=== PATIENT | male | born 1995 | race Caucasian/White ===

== ENCOUNTER 2023-02-26 01:04 | Emergency (ER) | payer MEDICAID, SELFPAY ==
--- NOTE | 2023-02-26 | ECG_ITS ---
Test Reason : tachycrdia Blood Pressure : / mmHG Vent. Rate : 145 BPM Atrial Rate : 145 BPM P-R Int : 122 ms QRS Dur : 072 ms QT Int : 284 ms P-R-T Axes : 072 064 058 degrees QTc Int : 441 ms Sinus tachycardia Otherwise normal ECG No previous ECGs available Referred By: Generic ED Physician Electronically Signed By:NABOR HODGES MD
[2023-02-26 01:12] VITALS: BP 147/97; PULSE 149; RESP 16; O2SAT 99; BMI 20.2
--- NOTE | 2023-02-26 01:31 | ECG_ITS ---
Test Reason : TACHY Blood Pressure : / mmHG Vent. Rate : 176 BPM Atrial Rate : 176 BPM P-R Int : 120 ms QRS Dur : 072 ms QT Int : 270 ms P-R-T Axes : 085 082 064 degrees QTc Int : 462 ms Sinus tachycardia Nonspecific ST abnormality Abnormal ECG When compared with ECG of 26-FEB-2023 01:18, No significant change was found Referred By: Harry Martell Electronically Signed By:NABOR HODGES MD
[2023-02-26 01:33] LABS: Basophils Absolute Auto 0.1 X10*3/uL (0.0-0.2); Basophils Percent Auto 0.5 % (0-2); Eosinophils Absolute Auto 0.2 X10*3/uL (0.0-0.4); Eosinophils Percent Auto 1.7 % (0-4); Imm Gran Abs Auto 0.05 X10*3/uL (0.00-0.03); Imm Gran Pct Auto 0.4 % (0.0-0.4); Lymphocytes Absolute Auto 5.3 X10*3/uL (1.2-4.9); Lymphocytes Percent Auto 46.5 % (20-40); MANUAL DIFF FLAG SCAN; Mean Corpuscular HGB Conc 34.8 g/dl (31.0-36.0); Mean Corpuscular Hemoglobin 28.8 pg (27.0-33.0); Mean Corpuscular Volume 82.9 fL (80.0-98.0); Mean Platelet Volume 10.4 fL (9.4-12.4); Monocytes Absolute Auto 1.1 X10*3/uL (0.1-1.2); Monocytes Percent Auto 9.9 % (2-11); Neutrophils Absolute Auto 4.7 x10*3/uL (2.0-8.3); Platelet Count 325 X10*3/uL (160-400); Red Blood Count 5.55 X10*6/uL (4.60-5.80); Red Cell Distribution Width 13.9 % (11.0-16.0); SCAN SMEAR FLAG 1; White Blood Count 11.4 X10*3/uL (4.8-10.8)
--- NOTE | 2023-02-26 01:40 | ED_ITS ---
HPI - Arrhythmia/Palpitations General Chief Complaint: Arrhythmia/Palpitations Stated Complaint: Drug Use Time Seen by Provider: 02/26/23 01:38 Source: patient Mode of arrival: ambulatory Limitations: no limitations History of Present Illness HPI narrative: Patient complaining of palpitation just prior to arrival after smoking marijuana drinking alcohol and snorted 150 mg trazodone his friends pillbox patient denied use of cocaine when patient came his heart rate was in 170s no chest pain no shortness of breath. Patient had same episode in the past when after drinking the energy drink Related Data Home Medications Medication Instructions Recorded Confirmed No Known Home Meds 02/26/23 02/26/23 Allergies Allergy/AdvReac Type Severity Reaction Status Date / Time cat dander [CATS] Allergy Unknown ITCH Verified 02/26/23 01:11 Review of Systems Review of Systems: Yes all other systems are reviewed and are negative [facility] Social History Social History Alcohol intake: current Smoked in Last 30 Days: Yes Use of substances other than those prescribed or required for medical reasons: Yes Substance Use Type: Marijuana Advance Directives: No Advance Directives Information Provided: No Physical Exam Vital Signs: Vital Signs: Last Vital Signs Temp 99.0 F 02/26/23 02:35 Pulse 84 02/26/23 06:00 Resp 20 02/26/23 06:00 BP 130/86 02/26/23 06:00 Pulse Ox 99 02/26/23 06:00 O2 Del Method Room Air 02/26/23 06:00 BMI result Body Mass Index 20.2 Appearance: Alert. Oriented X3. No acute distress. Anxious Eyes: PERRLA, No Nystagmus ENT: Pharynx normal. Oral Mucosa moist Neck: Normal inspection. Neck supple. CVS: Tachycardic with heart rate 170's. Pulses normal. Respiratory: No respiratory distress. Equal air entry bilateral, no wheezing/rales/rhonchi Abdomen: Soft and nontender. Bowel sounds are present, no mass palpable, no CVA tenderness Skin: Skin warm and dry. Normal skin color. Normal skin turgor. Extremities: No lower extremity edema. No calf tenderness Neuro: Oriented X 3. No motor deficit. Medications Administered Discontinued Medications Generic Name Dose Route Start Last Admin Trade Name Freq PRN Reason Stop Dose Admin Adenosine 6 mg 02/26/23 06:24 02/26/23 06:35 Adenosine 6 Mg/2 Ml Vial IVPUSH 02/26/23 06:25 6 mg ONCE ONE Administration Diltiazem HCl 10 mg 02/26/23 01:40 02/26/23 01:42 Diltiazem Hcl 50 Mg/10 Ml Vial IVPUSH 02/26/23 01:41 10 mg STAT STA Administration Diltiazem HCl 10 mg 02/26/23 02:01 02/26/23 02:03 Diltiazem Hcl 50 Mg/10 Ml Vial IVPUSH 02/26/23 02:02 10 mg STAT STA Administration Sodium Chloride 1,000 mls @ 999 mls/hr 02/26/23 01:42 02/26/23 04:05 Ns IV 02/26/23 02:42 Infused .Q1H1M ONE Infusion Lorazepam 1 mg 02/26/23 02:16 02/26/23 02:26 Lorazepam 2 Mg/Ml Vial IVPUSH 02/26/23 02:17 1 mg ONCE ONE Administration Metoprolol Tartrate 25 mg 02/26/23 04:58 02/26/23 05:06 Metoprolol Tartrate 25 Mg Tablet PO 02/26/23 04:59 25 mg ONCE ONE Administration Protocol Medical Decision Making Medical Decision Making [facility] Narrative: Patient has sinus tachycardia after taking marijuana alcohol and trazodone which is not 100% sure urine drug screen showed amphetamine positive patient heart rate did not respond to adenosine and Cardizem responded to Lopressor 25 mg Lab Data [facility] Lab Attestation statement: I reviewed the patient's lab results. 02/26/23 01:28 02/26/23 01:28 Labs: Lab Results 02/26/23 02/26/23 02/26/23 Range/Units 01:28 01:54 02:20 WBC 11.4 H (4.8-10.8) X10*3/uL RBC 5.55 (4.60-5.80) X10*6/uL Hgb 16.0 (14.0-18.0) g/dl Hct 46.0 (42.0-52.0) % MCV 82.9 (80.0-98.0) fL MCH 28.8 (27.0-33.0) pg MCHC 34.8 (31.0-36.0) g/dl RDW 13.9 (11.0-16.0) % Plt Count 325 (160-400) X10*3/uL MPV 10.4 (9.4-12.4) fL Immature Gran % (Auto) 0.4 (0.0-0.4) % Neut % (Auto) 41.0 L (45-73) % Lymph % (Auto) 46.5 H (20-40) % [place] % (Auto) 9.9 (2-11) % Eos % (Auto) 1.7 (0-4) % Baso % (Auto) 0.5 (0-2) % Lymph # (Auto) 5.3 H (1.2-4.9) X10*3/uL [place] # (Auto) 1.1 (0.1-1.2) X10*3/uL Eos # (Auto) 0.2 (0.0-0.4) X10*3/uL Baso # (Auto) 0.1 (0.0-0.2) X10*3/uL Abs Immat Gran (auto) 0.05 H (0.00-0.03) X10*3/uL Absolute Neuts (auto) 4.7 (2.0-8.3) x10*3/uL Absolute Nucleated RBC 0.000 (0.0-0.012) X10*3/uL Nucleated RBC % (auto) 0.0 (0.0-0.2) /100WBC Smear Tech's Comments VERIFIED Sodium 140 (135-145) mmol/L Potassium 3.0 L (3.3-5.1) mmol/L Chloride 101 (96-108) mmol/L Carbon Dioxide 22 (22-29) mmol/L Anion Gap 20 (12-20) BUN 12 (9-16) mg/dL Creatinine 1.28 (0.5-1.4) mg/dL Estim Creat Clear Calc 70.1 Estimated GFR > 60 Random Glucose 165 H (60-115) mg/dL Calcium 9.8 (8.4-10.2) mg/dL Total Bilirubin 1.1 H (0.0-1.0) mg/dL AST 64 H (5-37) U/L ALT 28 (0-40) U/L Alkaline Phosphatase 112 (39-117) U/L Total Protein 7.8 (6.5-8.0) g/dL Albumin 4.9 (3.5-5.0) g/dL TSH 1.42 (0.32-4.0) uIU/mL Urine Opiates Screen Not Detected (Not Detect) Urine Fentanyl Screen Not Detected (Not Detect) Ur Barbiturates Screen Not Detected (Not Detect) Ur Phencyclidine Scrn Not Detected (Not Detect) Ur Amphetamines Screen POSITIVE H (Not Detect) U Benzodiazepines Scrn Not Detected (Not Detect) Urine Cocaine Screen Not Detected (Not Detect) U Marijuana (THC) Screen POSITIVE H (Not Detect) Independent Interpretation I performed an independent interpretation of an: EKG Interpretation: Narrow complex sinus tachycardia with heart rate of 176 no acute ischemic change Discharge Plan Discharge Clinical Impression: Palpitations, Anxiety, Active substance abuse Patient Disposition: Home, Self-Care Instructions: Heart Palpitations (ED), Polysubstance Abuse (ED) Additional Instructions: Stop taking non-prescribed medication do not drink caffeine or energy drinks Follow the PCP Drink plenty of fluids Prescriptions: No Action No Known Home Meds
[2023-02-26] MEDS: dilTIAZem HCL 50 MG/10 ML VIAL 10 MG IVPUSH ×2 (01:42→02:03)
[2023-02-26] MEDS: 0.9 % Sodium Chloride 1,000 ML 999 ML IV (01:44)
[2023-02-26 01:49] VITALS: BP 153/79; PULSE 148; PULSE 149; RESP 20; O2SAT 100
[2023-02-26 01:59] LABS: SLIDE REVIEW VERIFIED
[2023-02-26 02:23] LABS: Alanine Aminotransferase 28 U/L (0-40); Albumin Level 4.9 g/dL (3.5-5.0); Alkaline Phosphatase 112 U/L (39-117); Anion Gap 20 (12-20); Aspartate Amino Transferase 64 U/L (5-37); Bilirubin Total 1.1 mg/dL (0.0-1.0); Blood Urea Nitrogen 12 mg/dL (9-16); Calcium 9.8 mg/dL (8.4-10.2); Carbon Dioxide 22 mmol/L (22-29); Chloride 101 mmol/L (96-108); Creatinine Clr Calc Pharmacy 70.1; Estimated Glomerular Filt Rate > 60; Glucose Random 165 mg/dL (60-115); Sodium 140 mmol/L (135-145); Total Protein 7.8 g/dL (6.5-8.0)
[2023-02-26] MEDS: LORazepam 2 MG/ML VIAL 1 MG IVPUSH (02:26)
[2023-02-26 02:35] VITALS: BP 141/74; PULSE 131; RESP 14; TEMP 37.2; O2SAT 95
[2023-02-26 02:37] LABS: Amphetamine Screen Urine POSITIVE (Not Detect); Barbiturates, Urine Not Detected (Not Detect); Benzodiazepines Screen Urine Not Detected (Not Detect); Cannabinoid Screen Urine POSITIVE (Not Detect); Cocaine Screen Urine Not Detected (Not Detect); Fentanyl, urine Not Detected (Not Detect); Opiate Screen Urine Not Detected (Not Detect); Phencyclidine Screen Urine Not Detected (Not Detect)
[2023-02-26 03:06] LABS: Thyroid Stimulating Hormone 1.42 uIU/mL (0.32-4.0)
[2023-02-26 03:16] VITALS: BP 128/68; PULSE 136; RESP 21; O2SAT 98
[2023-02-26 05:00] VITALS: BP 135/86; PULSE 126; RESP 16; O2SAT 99
[2023-02-26] MEDS: Metoprolol Tartrate 25 MG TABLET PO (05:06)
--- NOTE | 2023-02-26 05:06 | PC.NURSE ---
Pt has been resting quietly in be. A&Ox4, GCS 15. Pt skin is warm and dry. Pt denies pain but endorses heat and discomfort in his chest. Pt denies SOB. Pt HR currently at 116, BP at 135/86. Pt was given lopressor, is on the monitor, with a patent IV in his right AC.
[2023-02-26 06:00] VITALS: BP 130/86; PULSE 84; RESP 20; O2SAT 99
--- NOTE | 2023-02-26 06:26 | ECG_ITS ---
Test Reason : REPEAT Blood Pressure : / mmHG Vent. Rate : 091 BPM Atrial Rate : 091 BPM P-R Int : 134 ms QRS Dur : 084 ms QT Int : 344 ms P-R-T Axes : 072 072 058 degrees QTc Int : 423 ms Normal sinus rhythm Early repolarization Normal ECG When compared with ECG of 26-FEB-2023 01:31, Vent. rate has decreased BY [address] elevation now present in Anterior leads Referred By: Harry Martell Electronically Signed By:NABOR HODGES MD
[2023-02-26] MEDS: Adenosine 6 MG/2 ML VIAL IVPUSH (06:35)
== END 2023-02-26 07:16 | disposition home or self-care (01) ==
PROVIDERS: Emergency Provider Internal Medicine
DX: I49.9 Cardiac arrhythmia, unspecified (principal); R00.2 Palpitations; R00.0 Tachycardia, unspecified; F41.1 Generalized anxiety disorder; F43.0 Acute stress reaction; F12.10 Cannabis abuse, uncomplicated; Z79.899 Other long term (current) drug therapy
CPT/HCPCS: 36415; 80053; 80307; 84443; 85025; 93005; 96361; 96374; 96375; 96376; 99285; J0153; J2060